=== PATIENT | male | born 1990 | race American Indian/Alaskan Native ===

== ENCOUNTER 2017-03-12 16:13 | Emergency (ER) | payer OTHER ==
[2017-03-12 16:23] VITALS: BP 125/88; PULSE 85; RESP 17; TEMP 98.7; O2SAT 99
[2017-03-12] MEDS ORDERED: DiphenhydrAMINE 50 mg/ml Inj IVP STA (16:29)
[2017-03-12] MEDS ORDERED: Sodium Chloride 0.9% 1,000 ML IV STA (16:29)
--- NOTE | 2017-03-12 16:32 | ED PDOC ---
Arrival/HPI - General Chief Complaint: GI Problem Time Seen by Provider: 03/12/17 16:16 - History of Present Illness Narrative History of Present Illness (Text): 03/12/17 16:31 26 yo male no prior hx, presents with kearney vomiting. as per pt started morning. no fevers, no cough, no abdominal pain, no neck pain. "feels like he is going to pass out"; Past Medical History - Provider Review Nursing Documentation Reviewed: Yes - Infectious Disease Hx of Infectious Diseases: None - Psychiatric Hx Substance Use: No - Anesthesia Hx Anesthesia Reactions: No Family/Social History - Physician Review Nursing Documentation Reviewed: Yes Family/Social History: Unknown Family HX Smoking Status: Unknown If Ever Smoked Hx Alcohol Use: No Hx Substance Use: No Allergies/Home Meds Allergies/Adverse Reactions: Allergies shrimp Allergy (Verified 03/12/17 16:19) SWELLING Review of Systems - Review of Systems Constitutional: Normal Eyes: Normal ENT: Normal Respiratory: Normal Cardiovascular: Normal Gastrointestinal: Normal, Nausea, Vomiting Genitourinary Male: Normal Musculoskeletal: Normal Skin: Normal Neurological: Headache Endocrine: Normal Hemo/Lymphatic: Normal Psychiatric: Normal Physical Exam Vital Signs Temp Pulse Resp BP Pulse Ox 03/12/17 16:23 98.7 F 85 17 125/88 99 Temperature: Afebrile Blood Pressure: Normal Pulse: Regular Respiratory Rate: Normal Appearance: Positive for: Well-Appearing, Non-Toxic, Comfortable Pain Distress: None Mental Status: Positive for: Alert and Oriented X 3 - Systems Exam Head: Present: Atraumatic, Normocephalic Pupils: Present: PERRL Extroacular Muscles: Present: EOMI Conjunctiva: Present: Normal Mouth: Present: Moist Mucous Membranes Neck: Present: Normal Range of Motion Respiratory/Chest: Present: Clear to Auscultation, Good Air Exchange. No: Respiratory Distress, Accessory Muscle Use Cardiovascular: Present: Regular Rate and Rhythm, Normal S1, S2. No: Murmurs Abdomen: Present: Normal Bowel Sounds. No: Tenderness, Distention, Peritoneal Signs, Rebound, Guarding Back: Present: Normal Inspection Upper Extremity: Present: Normal Inspection. No: Cyanosis, Edema Lower Extremity: Present: Normal Inspection. No: Edema Neurological: Present: GCS=15, CN II-XII Intact, Speech Normal, Motor Func Grossly Intact, Normal Sensory Function, Normal Cerebellar Funct Skin: Present: Warm, Dry, Normal Color. No: Rashes Psychiatric: Present: Alert, Oriented x 3, Normal Insight, Normal Concentration Medical Decision Making ED Course and Treatment: 03/12/17 17:19 labs urnarkable. pt offered ct imaging . declines, no thunderclap features. no meningmusasking for dc 03/12/17 17:[address], declines, requesting dc abd sof tno ttp 03/12/17 18:04 - Lab Interpretations Lab Results: 03/12/17 16:45 03/12/17 16:45 Lab Results 03/12/17 16:45: Sodium 144, Potassium 4.0, Chloride 103, Carbon Dioxide 30, Anion Gap 15, BUN 12, Creatinine 0.8, Est GFR ( Amer) > 60, Est GFR (Non- Af Amer) > 60, Random Glucose 106, Calcium 9.4, Total Bilirubin 0.5, AST 29, ALT 67 H, Alkaline Phosphatase 152 H, Total Protein 8.0, Albumin 4.4, Globulin 3.6, Albumin/Globulin Ratio 1.2, Lipase 51 03/12/17 16:45: PT 11.9, INR 1.09 H, APTT 27.9 03/12/17 16:45: WBC 7.7, RBC 5.44, Hgb 14.9, Hct 42.6, MCV 78.3 L, MCH 27.4, MCHC 35.0, RDW 14.4, Plt Count 377, MPV 9.6, Gran % 77.3 H, Lymph % (Auto) 13.9 L, Hart % (Auto) 7.6 H, Eos % (Auto) 0.9 L, Baso % (Auto) 0.3, Gran # 5.94, Lymph # 1.1 L, Hart # 0.6, Eos # 0.1, Baso # 0.02 - Medication Orders Current Medication Orders: Discontinued Medications Diphenhydramine HCl (Benadryl) 25 mg IVP STAT STA Stop: 03/12/17 16:30 Last Admin: 03/12/17 16:49 Dose: 25 mg IVP Administration Document 03/12/17 16:49 [email or web address] (Rec: 03/12/17 16:49 [email or web address] [facility] [id number] Charges for Administration # of IVP Administrations 1 Sodium Chloride (Sodium Chloride 0.9%) 1,000 mls @ 999 mls/hr IV .Q1H1M STA Stop: 03/12/17 17:29 Last Admin: 03/12/17 16:49 Dose: 999 mls/hr eMAR Start Stop Document 03/12/17 16:49 [email or web address] (Rec: 03/12/17 16:49 [email or web address] [facility] [id number] Intravenous Solution Start Date 03/12/17 Start Time 16:49 End Date 03/12/17 Metoclopramide HCl (Reglan) 10 mg IVP STAT STA Stop: 03/12/17 16:30 Last Admin: 03/12/17 16:49 Dose: 10 mg IVP Administration Document 03/12/17 16:49 [email or web address] (Rec: 03/12/17 16:49 [facility] [facility] [id number] Charges for Administration # of IVP Administrations 1 Disposition/Present on Arrival - Present on Arrival Any Indicators Present on Arrival: No History of DVT/PE: No History of Uncontrolled Diabetes: No Urinary Catheter: No History of Decub. Ulcer: No History Surgical Site Infection Following: None - Disposition Have Diagnosis and Disposition been Completed?: Yes Diagnosis: Headache Disposition: HOME/ ROUTINE Disposition Time: 17:26 Condition: STABLE Discharge Instructions (ExitCare): Acute Headache (ED), Acute Nausea and Vomiting (ED) Additional Instructions: please follow up with your doctor. return to er with worsening symptoms or concerns. you are declining imaging at this time. you are able to return to er at any point with any concern Prescriptions: Acetaminophen/Butalbital/Caf [Fioricet] 1 tab PO Q8 PRN #20 tab PRN Reason: Headache Referrals: [facility] [Outside] - [facility] - Follow up with primary Forms: [employer] ([place]inamese), WORK NOTE
[2017-03-12 17:06] LABS: BASO # 0.02 K/mm3 (0.0-2.0); BASO % 0.3 % (0.0-3.0); EOS # 0.1 (0.0-0.7); EOS % 0.9 % (1.5-5.0); GRAN # 5.94 (1.4-6.5); GRAN % 77.3 % (50.0-68.0); HEMATOCRIT 42.6 % (42.0-52.0); LYMPH # 1.1 (1.2-3.4); LYMPH % 13.9 % (22.0-35.0); MEAN CELL VOLUME 78.3 fl (80.0-105.0); MEAN CORPUSCULAR HEMOGLOBIN 27.4 pg (25.0-35.0); MEAN PLATELET VOLUME 9.6 fl (7.0-11.0); MONO # 0.6 (0.1-0.6); MONO % 7.6 % (1.0-6.0); RED CELL DISTRIBUTION WIDTH 14.4 % (11.5-14.5); WHITE BLOOD COUNT 7.7 10^3/ul (4.5-11.0)
[2017-03-12 17:08] LABS: ALB/GLOB RATIO 1.2 (1.1-1.8); ALKALINE PHOSPHATASE 152 U/L (38-126); ALT/SGPT 67 U/L (7-56); AST/SGOT 29 U/L (17-59); BILIRUBIN,TOTAL 0.5 mg/dL (0.2-1.3); BLOOD UREA NITROGEN 12 mg/dL (7-21); CALCIUM 9.4 mg/dL (8.4-10.5); CARBON DIOXIDE 30 mmol/L (21-33); CHLORIDE 103 mmol/L (98-107); GFR AFRICAN-AMERICAN > 60; GLUCOSE,RANDOM 106 mg/dL (70-110); LIPASE 51 U/L (23-300); SODIUM 144 mmol/L (132-148)
[2017-03-12 17:17] LABS: INR 1.09 (0.93-1.08); PARTIAL THROMBOPLASTIN TIME 27.9 Seconds (25.1-36.5)
--- NOTE | 2017-03-12 22:32 | CARD ---
APPROVED REPORT EKG Measurement Heart [id number] <Conclusion> Sinus rhythm with premature ventricular complexes Minimal voltage criteria for LVH, may be normal variant Borderline ECG
== END 2017-03-12 17:36 | disposition home or self-care (01) ==
LOC: ED 16:13
DX: R51 Headache (principal)
CPT/HCPCS: 80053; 83690; 85025; 85610; 85730; 93005; 96374; 96375; 99284; J1200; J2765; J7040